=== PATIENT | male | born 1995 ===

== ENCOUNTER 2016-03-21 04:21 | Emergency (ER) | payer BC ==
[2016-03-21 04:25] VITALS: BP 143/74; PULSE 52; TEMP 97.6; BMI 32.1
--- NOTE | 2016-03-21 04:27 | PDOC ---
History of Present Illness - General Chief Complaint: Nausea/Vomiting Stated Complaint: N/V/D Time Seen by Provider: 03/21/16 04:22 - History of Present Illness Initial Comments: 03/21/16 04:39 This otherwise healthy 21-year-old man presents with several hour history of nausea/vomiting/diarrhea with intermittent abdominal pain. Patient states that he was in his usual health earlier today; he ate dinner at approximately 6 PM without distress. Approximately midnight, he began to have nausea and subsequent vomiting several times (first partially digested food then bilious material; no blood or coffee grounds). He subsequently had a few loose, watery stools without blood or mucus. Pain is intermittent and located in the midabdomen. No fever or chills. No upper respiratory symptoms noted. No recent travel. No known sick contacts. No significant past medical history On no medications No known ALLERGIES 03/21/16 06:25 Past History - Past Medical History Allergies/Adverse Reactions: Allergies Allergy/AdvReac Type Severity Reaction Status Date / Time No Known Allergies Allergy Unverified 03/21/16 04:22 Home Medications: Ambulatory Orders Ondansetron [Zofran Odt -] 4 mg SL TID PRN #10 od.tablet 03/21/16 - Psycho/Social/Smoking Cessation Hx Suicidal Ideation: No Smoking History: Never smoked Review of Systems - Review of Systems Able to Perform ROS?: Yes Comments:: 12 point review of systems is negative except for what is noted in the history of present illness *Physical Exam - Vital Signs Last Vital Signs Temp Pulse Resp BP Pulse Ox 97.6 F 52 L 16 143/74 98 03/21/16 04:23 03/21/16 04:23 03/21/16 04:23 03/21/16 04:23 03/21/16 04:23 - Physical Exam Comments: GENERAL: The patient is awake, alert, and fully oriented Vital signs as noted HEAD: Normal with no signs of trauma. EYES: Pupils equal, round and reactive to light, extraocular movements intact, sclera anicteric, conjunctiva clear with no pallor. ENT: dry mucous membranes. Ears normal, nares patent, oropharynx clear without exudates. NECK: Normal range of motion, supple without lymphadenopathy, JVD, or masses. LUNGS: Breath sounds equal, clear to auscultation bilaterally. No wheeze/ crackles HEART: Regular rate and rhythm, normal S1 and S2 without murmur or rub. ABDOMEN: Soft/nondistended. BS wnl.mild generalized tenderness No guarding or rebound. No palpable masses. No hepatosplenomegaly. EXTREMITIES: Normal range of motion, no edema. No clubbing or cyanosis. No cords, erythema, or tenderness. NEUROLOGICAL: Cranial nerves II through XII grossly intact. Normal speech, normal gait. PSYCH: Normal mood, normal affect. SKIN: Warm, Dry, normal turgor, no rashes or lesions noted. ED Treatment Course - LABORATORY CBC & Chemistry Diagram: 03/21/16 04:36 03/21/16 04:36 Medical Decision Making - Medical Decision Making Patient felt significantly better after 1 L normal saline IV and 4 mg of Zofran IV. Laboratory evaluation showed moderate elevation of white blood cell count at 13, 900. Other than very mild transaminitis, chemistry profile was within normal limits. Patient tolerated 8 ounces of water without nausea or vomiting. Patient discharged with prescription for Zofran 4 mg ODT to be taken up to 3 times a day as needed for nausea. He should maintain clear liquid diet and advance to normal solid food diet cautiously He should return to the emergency room he has any recurrent vomiting or experiences worsening abdominal pain. Follow up with his doctor should be within the next 3-4 days. *DC/Admit/Observation/Transfer Diagnosis at time of Disposition: Acute gastroenteritis - Discharge Dispostion Disposition: HOME Condition at time of disposition: Stable - Prescriptions Prescriptions: Ondansetron [Zofran Odt -] 4 mg SL TID PRN #10 od.tablet PRN Reason: Nausea - Referrals Referrals: Natalie Welch [Primary Care Provider] - - Patient Instructions Printed Discharge Instructions: DI for Viral Gastroenteritis -- Adult Additional Instructions: clear liquids, advance diet slowly Zofran ODT 4mg up to 3 times a day as needed for nausea return to ER if vomiting recurs or pain is severe followup with your doctor within 3-4 days
[2016-03-21] MEDS ORDERED: ONDANSETRON 4 MG/2 ML VIAL IVPUSH ONE (04:32)
[2016-03-21] MEDS ORDERED: SODIUM CHLORIDE 1,000 ML IV STA (04:32)
[2016-03-21] MEDS ORDERED: ONDANSETRON 4 MG/2 ML VIAL ONE (04:37)
[2016-03-21 05:11] LABS: EOSINOPHIL 0.3 % (0-4.5)
[2016-03-21 05:13] LABS: BASOPHIL 0.1 % (0-2.0); MCH 30.1 pg (25.7-33.7); MCHC 33.7 g/dl (32.0-35.9); MEAN CELL VOLUME 89.4 fl (80-96); MEAN PLT VOLUME 9.2 fl (7.5-11.1); NEUTROPHILS 86.8 % (42.8-82.8); PLATELET COUNT 197 K/MM3 (134-434); RDW 13.7 % (11.9-15.9); WHITE BLOOD COUNT 13.9 K/mm3 (4.0-10.0)
[2016-03-21 06:03] LABS: ALBUMIN 4.3 g/dl (3.4-5.0); ANION GAP 12 (8-16); BILIRUBIN,TOTAL 0.6 mg/dL (0.2-1.0); CALCIUM 9.4 mg/dL (8.5-10.1); CO2 26 mmol/L (21-32); CREATININE 0.9 mg/dL (0.7-1.3); GLUCOSE,RANDOM 113 mg/dL (74-106); SGOT/AST 39 U/L (15-37); SGPT/ALT 114 U/L (12-78); TOT PROT 7.5 g/dl (6.4-8.2)
[2016-03-21 06:04] LABS: ALK PHOS 94 U/L (45-117)
== END 2016-03-21 06:31 | disposition home or self-care (01) ==
LOC: FER 04:21
PROC: 3E033GC Introduction of Other Therapeutic Substance into Peripheral Vein, Percutaneous Approach (ICD-10-PCS; principal; 2016-03-21)
DX: K52.9 Noninfective gastroenteritis and colitis, unspecified (principal)
CPT/HCPCS: 36415; 80053; 83690; 85025; 99283-25